=== PATIENT | female | born 1985 | race Caucasian/White ===

== ENCOUNTER 2016-06-04 12:11 | Outpatient (CLI) | payer OTHER ==
[2016-06-04 13:08] VITALS: BMI 29.1
== END 2016-06-04 13:26 | disposition home or self-care (01) ==
LOC: FBCOUT 12:11 → FBC 12:15 → FBCOUT 13:26
PROVIDERS: ATTEND Family Medicine
DX: O26.899 Other specified pregnancy related conditions, unspecified trimester (principal); Z3A.00 Weeks of gestation of pregnancy not specified